=== PATIENT | female | born 1945 | race Asian ===

== ENCOUNTER 2019-08-06 22:40 | Inpatient (IN) | payer MEDICARE, OTHER ==
[~2019-08-06] VITALS: Ht 160 cm; Wt 75.5 kg
[2019-08-06 23:40] LABS: Basophils # (auto) 0 10 ^3/uL (0-0.2); Basophils % (auto) 0.5 % (0.0-2.0); Eosinophils # (auto) 0.1 10 ^3/uL (0-0.8); Eosinophils % (auto) 0.9 % (0.0-7.0); Hematocrit 46.1 % (36.0-46.0); Hemoglobin 15.8 g/dL (12.2-16.2); Lymphocytes # (auto) 0.7 10 ^3/uL (0.4-5.4); Lymphocytes % (auto) 6.4 % (10.0-50.0); Mean Corpuscular Hemoglobin 33.8 pg (28.0-32.0); Mean Corpuscular Hgb Conc. 34.3 g/dL (32.0-36.0); Mean Corpuscular Volume 98.6 fL (80.0-100.0); Monocytes # (auto) 1.9 10 ^3/uL (0-1.3); Neutrophils # (auto) 7.6 10 ^3/uL (1.6-8.6); Neutrophils % (auto) 74.2 % (37.0-80.0); Platelet Count (auto) 203 10^3/uL (140-450); Red Blood Cells 4.67 10^6/uL (4.0-5.20); Red Cell Distribution Width 13.4 % (11.8-14.3); White Blood Cell 10.3 10^3/uL (4.4-10.8)
[2019-08-06] MEDS ORDERED: LORazepam 2MG/ML-1ML VIAL IV ONE (23:45)
[2019-08-06] MEDS ORDERED: diphenhdrAMINE HCL 50 MG/1 ML VL ONE (23:47)
[2019-08-07 00:04] LABS: INR 1.08 (0.9-1.15); Partial Thromboplastin Time 29.9 sec (23.64-32.05)
[2019-08-07 00:17] LABS: Albumin 3.2 g/dL (3.4-5.0); Anion Gap 5 (5-15); Blood Alcohol < 3.0 mg/dL (0-5); Blood Urea Nitrogen 8 mg/dL (7-18); Calcium 8.3 mg/dL (8.5-10.1); Carbon Dioxide 26 mmol/L (21-32); Chloride 100 mmol/L (98-107); Glucose 169 mg/dL (74-106); Magnesium 2.3 mg/dL (1.6-2.6); Potassium 4.4 mmol/L (3.5-5.1); Sodium 131 mmol/L (136-145)
[2019-08-07 00:19] LABS: BUN/Creatinine Ratio 12.3; GFR African American 115 mL/min; GFR Non-African American 95 mL/min
[2019-08-07 00:23] LABS: Alanine Aminotransferase 26 U/L (13-56); Alkaline Phosphatase 78 U/L (45-117); Aspartate Aminotransferase 71 U/L (15-37); Bilirubin, Total 0.7 mg/dL (0.2-1.0); Total Protein 7.2 g/dL (6.4-8.2)
[2019-08-07 00:24] LABS: Salicylate < 1.7 mg/dL (2.8-20.0)
[2019-08-07 00:25] LABS: Acetaminophen < 2.0 ug/mL (10-30)
[2019-08-07 00:56] LABS: Alcohol, Urine < 3.0 mg/dL (0-10); Amphetamine Screen, Urine NEGATIVE (NEGATIVE); Barbiturate Scree,Urine NEGATIVE (NEGATIVE); Benzodiazephine Screen, Urine NEGATIVE (NEGATIVE); Cannabinoid Screen, Urine NEGATIVE (NEGATIVE); Cocaine Screen, Urine NEGATIVE (NEGATIVE); Opiate Scree,Urine NEGATIVE (NEGATIVE); Phencyclidine Screen, Urine NEGATIVE (NEGATIVE)
[2019-08-07] MEDS ORDERED: levETIRAcetam 500 MG/5ML INJ IV ONE (02:14)
[2019-08-07] MEDS ORDERED: SODIUM CHLORIDE 0.9% 1,000 ML IV ONE (02:15)
[2019-08-07] MEDS ORDERED: DOCUSATE SOD 100 MG CAP PO PRN (02:30)
[2019-08-07] MEDS ORDERED: LORazepam 0.5 MG TAB PO PRN (02:30)
[2019-08-07] MEDS ORDERED: DEXTROSE (50%) 50ML SYRG IV PRN (02:30)
[2019-08-07] MEDS ORDERED: HYDROcodone-ACET 5/325MG TAB PO PRN (02:30)
[2019-08-07] MEDS ORDERED: ONDANSETRON HCL 4 MG/2 ML VIAL IV PRN (02:30)
[2019-08-07] MEDS ORDERED: ACETAMINOPHEN 325 MG TAB PO PRN (02:30)
[2019-08-07] MEDS: ACCU-CHEK COMFORT CURVE STRIP VI SCH ×3 (06:00→19:00)
[2019-08-07] MEDS: InsuLIN REG 1unit/0.01ml Soln (100units/ml) SC SCH ×3 (06:00→19:00)
[2019-08-07 06:56] LABS: Eosinophils # (auto) 0 10 ^3/uL (0-0.8); Lymphocytes # (auto) 0.4 10 ^3/uL (0.4-5.4); Nucleated Red Blood Cells % 0.1 %
[2019-08-07 06:59] LABS: Basophils # (auto) 0 10 ^3/uL (0-0.2); Basophils % (auto) 0.3 % (0.0-2.0); Hematocrit 43.3 % (36.0-46.0); Hemoglobin 15.5 g/dL (12.2-16.2); Lymphocytes % (auto) 5.8 % (10.0-50.0); Mean Corpuscular Hemoglobin 36.3 pg (28.0-32.0); Mean Corpuscular Hgb Conc. 35.7 g/dL (32.0-36.0); Mean Corpuscular Volume 101.6 fL (80.0-100.0); Monocytes % (auto) 13.5 % (0.0-12.0); Neutrophils # (auto) 6.1 10 ^3/uL (1.6-8.6); Neutrophils % (auto) 80.4 % (37.0-80.0); Platelet Count (auto) 201 10^3/uL (140-450); Red Blood Cells 4.27 10^6/uL (4.0-5.20); Red Cell Distribution Width 13.7 % (11.8-14.3); White Blood Cell 7.5 10^3/uL (4.4-10.8)
[2019-08-07 07:20] LABS: Urine Bacteria MOD /hpf (None Seen); Urine Blood Negative /uL (Negative); Urine Hyaline Cast FEW /lpf (0 - 2); Urine Mucus FEW (None Seen); Urine Specific Gravity 1.011 (1.001-1.035); Urine WBC 34 /hpf (0 - 5); Urine WBC Clumps PRESENT /hpf (None Seen)
[2019-08-07 07:32] LABS: Calcium 8.2 mg/dL (8.5-10.1); Potassium 3.9 mmol/L (3.5-5.1)
[2019-08-07 07:38] LABS: BUN/Creatinine Ratio 10.7
[2019-08-07] MEDS ORDERED: cefTRIAXone 1GM/50ML D5W 50 ML IV ONE (12:00)
--- NOTE | 2019-08-07 12:50 | NUR ---
Telemetry admit from ER MANDYJOANA SHORE admitted to Telemetry unit after SBAR received. Patient oriented to Cheyanne Armstrong, RN primary RN, unit, room, bed, and unit policies regarding patient care and visiting hours. Patient now on continuous telemetry monitoring, tele box # 48 and telemetry reading on arrival to unit is [address] [facility]. Patient placed on bedside oxygen, weighed by bedscale and encouraged to call if she needs something. All questions and concerns addressed, patient verbalized understanding. Note:
--- NOTE | 2019-08-07 12:54 | NUR ---
ADMISSION INTERVENTIONS UNABLE TO COMPLETE ADMISSION INTERVENTIONS. PATIENT NOT ABLE TO ANSWER QUESTIONS AT THIS TIME. PRIMARY CARE NURSE NOTIFIED.
[2019-08-07 13:00] VITALS: BP 106/80
--- NOTE | 2019-08-07 13:00 | NUR ---
When patient was transferred to Room 220B she was thrashing on the gurney, trying to climb over the side rails. The patient is non responsive to verbal commands, does not respond to name. Charge informed.
--- NOTE | 2019-08-07 13:00 | NUR ---
Patient incontinent of stool. Patient cleaned and repositioned. Will continue to monitor.
--- NOTE | 2019-08-07 14:30 | NUR ---
Sitter at bedside. Will continue to monitor.
[2019-08-07 17:00] VITALS: BP 97/66
[2019-08-07 20:00] VITALS: BP 96/65
[2019-08-07] MEDS ORDERED: LORazepam 2MG/ML-1ML VIAL IV PRN (20:00)
[2019-08-07 22:00] VITALS: BP 96/65
[2019-08-07] MEDS: ATORVASTATIN 20 MG TAB PO SCH (22:46)
[2019-08-08] VITALS (7 sets, daily range): BP systolic 83–106; BP diastolic 50–71
[2019-08-08] MEDS: ACCU-CHEK COMFORT CURVE STRIP VI SCH ×4 (00:14→18:04)
[2019-08-08] MEDS: InsuLIN REG 1unit/0.01ml Soln (100units/ml) SC SCH ×4 (00:15→18:00)
--- NOTE | 2019-08-08 07:30 | NUR ---
RECEIVED REPORT FROM NIGHT NURSE. PATIENT RESTING IN BED, NO DISTRESS NOTED, SITTER AT BEDSIDE. WILL CONTINUE TO MONITOR.
[2019-08-08] MEDS ORDERED: ASPirin 300 MG RECTAL SUPP PR SCH (10:00)
--- NOTE | 2019-08-08 10:30 | NUR ---
DOCTOR Nina CONTE AT BEDSIDE.
[2019-08-08] MEDS: cefTRIAXone 1GM/50ML D5W 50 ML IV SCH (10:46)
--- NOTE | 2019-08-08 11:45 | NUR ---
CLERK ENTRY LEVEL AT BEDSIDE.
--- NOTE | 2019-08-08 11:45 | NUR ---
ELECTROENCEPHALOGRAM UNABLE TO COMPLETE EEG. PT RESTLESS AND TRIED TO REMOVE LEADS. PRIMARY RN AWARE.
--- NOTE | 2019-08-08 19:00 | NUR ---
Opening Shift Note Assumed care of patient, awake and alert. No S/S of distress/SOB or pain. Instructed on POC and to call for assist PRN, will continue to monitor for changes Q1hr and PRN.
[2019-08-08] MEDS: ATORVASTATIN 20 MG TAB PO SCH (22:05)
[2019-08-08] MEDS: levETIRAcetam 500 MG TAB PO SCH (22:05)
[2019-08-09 04:06] VITALS: BP 106/69
[2019-08-09] MEDS: InsuLIN REG 1unit/0.01ml Soln (100units/ml) SC SCH ×4 (06:00→18:00)
[2019-08-09] MEDS: ACCU-CHEK COMFORT CURVE STRIP VI SCH ×4 (06:00→18:20)
--- NOTE | 2019-08-09 07:28 | NUR ---
Opening Shift Note Assumed care of patient, awake and alert x4. No S/S of distress/SOB or pain reported at this time. Instructed on POC and to call for assist PRN, call light within reach, seizure and aspiration precautions in place, bed alarm on, will continue to monitor for changes Q1hr and PRN.
[2019-08-09] MEDS ORDERED: LORazepam 2MG/ML-1ML VIAL IV ONE (07:45)
[2019-08-09 08:00] VITALS: BP 109/61
[2019-08-09 09:00] VITALS: BP 109/61
[2019-08-09] MEDS: levETIRAcetam 500 MG TAB PO SCH ×2 (10:28→22:53)
[2019-08-09] MEDS: cefTRIAXone 1GM/50ML D5W 50 ML IV SCH (10:28)
[2019-08-09] MEDS: ASPirin-EC 81 mg tab PO SCH (10:28)
--- NOTE | 2019-08-09 12:58 | NUR ---
CRITICAL LAB RECEIVED A CALL FROM [employer] AND SPOKE WITH LAINEY, PT URINE CULTURE POSITIVE FOR ESBL, DR CONTE NOTIFIED, STATES " HE WILL COME AND SEE PT", CONT CARE
[2019-08-09 13:00] VITALS: BP 103/71
[2019-08-09] MEDS ORDERED: ERTAPENEM SOD INJ 1 GM in SODIUM CHL 0.9% 50 ML IV ONE (13:15)
--- NOTE | 2019-08-09 14:30 | NUR ---
Attempted PT eval, pt is going down for MRI. Will attempt again later.
--- NOTE | 2019-08-09 15:17 | NUR ---
Est energy needs 0651-5777 kcal (25-27 kcal/kg 75.5kg BW) Est protein needs 60-76g (0.8-1g/kg BW 75.5kg) Will reassess prn. Addendum: 08/09/19 at [address] Amended: Links added.
[2019-08-09 17:00] VITALS: BP 111/65
--- NOTE | 2019-08-09 19:00 | NUR ---
Opening Shift Note Assumed care of patient, awake and alert. Sitter on bedside. No S/S of distress/SOB or pain. Instructed on POC and to call for assist PRN, will continue to monitor for changes Q1hr and PRN.
[2019-08-09 22:00] VITALS: BP 107/62
[2019-08-09] MEDS: ATORVASTATIN 20 MG TAB PO SCH (22:53)
[2019-08-10] MEDS: ACCU-CHEK COMFORT CURVE STRIP VI SCH ×3 (06:00→11:17)
[2019-08-10] MEDS: InsuLIN REG 1unit/0.01ml Soln (100units/ml) SC SCH ×2 (06:00)
--- NOTE | 2019-08-10 07:30 | NUR ---
Opening Shift Note Assumed care of patient, awake and alert x4. No S/S of distress/SOB or pain reported at this time. IV patent and benign, to right wrist, Instructed on POC and to call for assist PRN, call light within reach, seizure and aspiration precautions in place, bed alarm on, will continue to monitor for changes Q1hr and PRN.
[2019-08-10 08:00] VITALS: BP 144/98
[2019-08-10 09:00] VITALS: BP 103/70
--- NOTE | 2019-08-10 09:11 | NUR ---
AT BEDSIDE DR CONTE AT BEDSIDE, DISCUSSING POC WITH PT, CONT CARE
--- NOTE | 2019-08-10 10:02 | NUR ---
PHYSICAL THERAPY PT AMBULATING, STANDBY ASSISTANCE, NO DISTRESS NOTED, CONT CARE
[2019-08-10] MEDS: levETIRAcetam 500 MG TAB PO SCH ×2 (10:37→21:44)
[2019-08-10] MEDS: ERTAPENEM SOD INJ 1 GM in SODIUM CHL 0.9% 50 ML IV SCH (10:37)
[2019-08-10] MEDS: ASPirin-EC 81 mg tab PO SCH (10:37)
[2019-08-10 13:00] VITALS: BP 104/68
--- NOTE | 2019-08-10 14:45 | NUR ---
Midline Placement: Patient educated on need for midline placement. All risks and benefits explained and all questions and concerns addresses prior to procedure. 18g/10cm midline inserted via right brachial vein using Ultrasound. Sterile technique utilized. Blood return obtained from lumen and flushed easily with NS using proper technique. Midline secured with saline lock; biodisc and occlusive dressing applied. Helen CONDE notified.
--- NOTE | 2019-08-10 15:11 | NUR ---
Assessment Patient is a 73-year-old female who is alert. Patient as me to speak to her son Daniel ) Assessment was completed with Daniel. Per Daniel prior to admission patient live home with him and his and functioned independently. Per Daniel patient can care for her own ADLs and does not need any medical equipment now. Per Daniel patient will return to her prior living arrangements post discharge and he will transport patient home. Advised Daniel there is a social service consult for home IV abx for 14 days with Invanz 1 g daily. Informed Daniel Coding Technician Sasha will complete the IV abx. Per Daniel he is a Nurse and can assist with the IV abx. Informed Daniel he has the right to participate in all discharge planning. Daniel verbalized understanding discharge planning. Spoke to KATY barraza contracted home health agency. KATY Baez provided me with [facility] [phone], [facility] [phone], [facility] [phone], [facility] [phone] and [facility] [phone]. Per Lens Block Gauger with [facility], [facility], [facility] and [facility] they are not contacted with patient health plan. {Per Luz Marina with [facility] they are contracted but they do not have any nurse available for IV abx. Informed KATY Baez who will ask infusion company if they can assist with the IV abx. Addendum: 08/10/19 at 1513 by TALIA KELSEY Amended: Links added.
[2019-08-10 18:00] VITALS: BP 101/63
--- NOTE | 2019-08-10 19:35 | NUR ---
OPENING SHIFT NOTE Assumed care of patient who is A&O x4. Currently on RA with no s/s of distress. Denies pain at this time. Patient is ambulatory with assistance. Sitter is at the bedside for safety. Midline in right upper arm is intact and patent. Flushed with 10ml NS. POC discussed and patient verbalizes understanding. Bed is in low locked position with side rails up x2. Call light is within reach and patient encouraged to call for assistance when needed. Will continue to monitor for changes PRN.
[2019-08-10 20:00] VITALS: BP 102/70
--- NOTE | 2019-08-10 20:35 | NUR ---
AT BEDSIDE Dr. Grider at bedside. No new orders at this time.
--- NOTE | 2019-08-10 21:07 | NUR ---
IV removal IV in right wrist is leaking. DC'd with clean sterile technique, catheter fully intact. Pressure dressing applied to site. Patient tolerated well.
[2019-08-10] MEDS: ATORVASTATIN 20 MG TAB PO SCH (21:44)
[2019-08-10 22:00] VITALS: BP 102/70
[2019-08-11 05:00] VITALS: BP 103/68
--- NOTE | 2019-08-11 07:30 | NUR ---
Opening Shift Note Assumed care of patient, awake and alert. No S/S of distress/SOB or pain. Instructed on POC and to call for assist PRN, will continue to monitor for changes Q1hr and PRN. Bed alarm is on, bed is locked and lowest position. Call light within reach. Sitter is at bedside.
[2019-08-11 08:00] VITALS: BP 105/68
[2019-08-11 09:08] VITALS: BP 105/68
--- NOTE | 2019-08-11 10:38 | NUR ---
D/C Planning Per KATY Baez patient health plan advised her [facility] can accepted. Faxed clinical information to [facility]. per Jannie with [facility] ) patient has been accepted and service to start within 24hrs upon d/c day. Informed Jannie with [facility] patient will discharge home today. Informed KATY Baez [facility] has accepted. KATY Baez will obtain authorization from health plan.
[2019-08-11] MEDS: levETIRAcetam 500 MG TAB PO SCH (10:46)
[2019-08-11] MEDS: ASPirin-EC 81 mg tab PO SCH (10:46)
[2019-08-11] MEDS: ERTAPENEM SOD INJ 1 GM in SODIUM CHL 0.9% 50 ML IV SCH (12:38)
[2019-08-11 13:34] VITALS: BP 108/71
--- NOTE | 2019-08-11 13:47 | NUR ---
1345 08/11/2019 - Contacted [place] case work aide Sarah at [phone], requesting authorization for [facility] and [facility]. I informed Sarah that I had spoken with someone from [employer]. Sarah, confirmed receipt of all faxed documents and stated she would be sending authorizations to both the infusion company and the home health agency.
[2019-08-11 16:32] VITALS: BP 110/69
--- NOTE | 2019-08-11 17:05 | NUR ---
BLADDER TRAINING INITIATED/DC REILLY Reilly catheter dc'd, Order to discontinue reilly catheter. Reilly dc'd with clean technique following deflation of balloon. Patient tolerated well with no complaints of pain. Continue care.
[2019-08-11] MEDS ORDERED: ASPI-543 PO (17:09)
[2019-08-11] MEDS ORDERED: ATOR20TA50 PO (17:09)
--- NOTE | 2019-08-11 17:16 | NUR ---
FAMILY SPOKE WITH MCKENZIE KAPLAN AND UPDATED ON POC AND DISCHARGE PLAN, CONT CARE
[2019-08-11 17:17] VITALS: BP 142/60
--- NOTE | 2019-08-11 17:40 | NUR ---
PAYMENT PROVIDED BY SON SPOKE WITH [facility] WHO STATES HE CALLED [facility] AND SPOKE WITH [facility] AND PROVIDED CREDIT CARD FOR PAYMENT, CONT WITH DC
--- NOTE | 2019-08-11 19:16 | NUR ---
DISCHARGE Discharge instructions given as ordered. Encourage to follow up with PMD as instructed. Patient will follow up with [facility], out of area, All questions and concerns addressed. Patient and Son Daniel verbalized understanding. Medication reconciliation form completed and copy given to patient. Midline to right upper arm patent and benign, to remain inserted for home IV ABX, reilly catheter removed. Telemetry unit returned to ICU. Patient taken to vehicle via wheelchair with all personal belongings, accompanied by staff and family member. No distress noted at time of departure.
== END 2019-08-11 19:15 | disposition home or self-care (01) | DRG 100 ==
LOC: ER 22:40 → TELE 22:41 → TELE-CENTR 08-07 11:20
PROVIDERS: ADMIT Hospitalist; ATTEND Family Medicine
DX: G40.409 Other generalized epilepsy and epileptic syndromes, not intractable, without status epilepticus (principal); G93.41 Metabolic encephalopathy; N39.0 Urinary tract infection, site not specified; R73.9 Hyperglycemia, unspecified; I70.0 Atherosclerosis of aorta; I10 Essential (primary) hypertension; B96.20 Unspecified Escherichia coli [E. coli] as the cause of diseases classified elsewhere; I25.10 Atherosclerotic heart disease of native coronary artery without angina pectoris; Z79.82 Long term (current) use of aspirin; Z79.899 Other long term (current) drug therapy; Z86.73 Personal history of transient ischemic attack (TIA), and cerebral infarction without residual deficits
CPT/HCPCS: 36415; 70450; 70551; 71045; 72125; 80048; 80053; 80061; 80307; 80320; 80329; 81001; 82962; 83036; 83735; 85025; 85610; 85730; 87040; 87086; 87088; 87186; 93005; G0378; J0696; J1335; J1815; J7060